=== PATIENT | male | born 1995 | race Caucasian/White ===

== ENCOUNTER 2023-09-09 09:12 | Emergency (ER) | payer MEDICAID ==
[~2023-09-09] VITALS: Ht 238.8 cm; Wt 117.9 kg
[2023-09-09 10:08] VITALS: BP 168/94; PULSE 87; RESP 18; TEMP 99.1; O2SAT 97
[2023-09-09 10:45] LABS: BASOPHILS % (AUTO) 0.4 % (0.0-2.0); HEMATOCRIT 41.8 % (36-52); HEMOGLOBIN 14.5 g/dL (12.0-18.0); LYMPHOCYTES # (AUTO) 1.2 K/uL (2.0-11.5); LYMPHOCYTES % (AUTO) 28.1 % (20.5-51.1); MEAN CORPUSCULAR HEMOGLOBIN 28 pg (27-31); MEAN CORPUSCULAR HGB CONC 35 g/dL (33-37); MEAN CORPUSCULAR VOLUME 80.4 fL (80-94); MONOCYTES # (AUTO) 0.7 K/uL (0.8-1.0); MONOCYTES % (AUTO) 15.8 % (1.7-9.3); NEUTROPHILS # (AUTO) 2.3 K/uL (1.8-7.7); NEUTROPHILS % (AUTO) 55.7 % (42.2-75.2); PLATELET COUNT (AUTO) 168 K/uL (140-450); RED CELL DISTRIBUTION WIDTH 13.4 % (11.6-13.7); WHITE BLOOD COUNT (AUTO) 4.2 K/uL (4.8-10.8)
[2023-09-09] MEDS: NACL 0.9% 1,000 ML IV ONE (10:47)
[2023-09-09] MEDS: ACETAMINOPHEN EXTRA STRENGTH 500 MG TAB PO ONE (10:50)
[2023-09-09] MEDS: KETOROLAC 30 MG/ML VIAL IVP ONE ×2 (10:54→12:10)
[2023-09-09] MEDS: METOCLOPRAMIDE 10 MG/2 ML INJ VIAL IVP ONE (10:54)
[2023-09-09 11:04] LABS: ANION GAP 4.9 (8-16); CALCIUM 8.8 mg/dL (8.5-10.1); CARBON DIOXIDE 33.5 mmol/L (21-32); CREATININE 0.8 mg/dL (0.6-1.3); POTASSIUM 3.4 mmol/L (3.5-5.1)
[2023-09-09] MEDS ORDERED: ONDA-188 PO (12:17)
[2023-09-09] MEDS: OLANZapine 5 MG ODT SL ONE (12:20)
[2023-09-09 12:43] VITALS: BP 136/70; PULSE 88; RESP 18; TEMP 98.3; O2SAT 96
== END 2023-09-09 12:42 | disposition home or self-care (01) ==
LOC: MED 09:12
DX: G44.209 Tension-type headache, unspecified, not intractable (principal); Z79.899 Other long term (current) drug therapy
CPT/HCPCS: 36415; 80048; 85025; 96361; 96374; 96375; 96376; 99284; J1885; J2765; J7030